=== PATIENT | female | born 1960 | race Caucasian/White ===

== ENCOUNTER 2016-08-16 23:57 | Inpatient (IN) | payer MEDICARE ==
--- NOTE | 2016-08-17 00:34 | HP ---
CIWA Score - CIWA Score Nausea/Vomitin Muscle Tremors: 5 Anxiety: 5 Agitation: 5 Paroxysmal Sweats: 3 Orientation: 0-Oriented Tacttile Disturbances: 3-Moderate Itch/Numb/Burn Auditory Disturbances: 0-None Visual Disturbances: 0-None Headache: 0-None Present CIWA-Ar Total Score: 23 Admission ROS S - [facility] Chief Complaint: C/O WITHDRAWAL SX'S. SEEKING DETOX TXMENT History of Present Illness: 56 Y.O. FEMALE WITH LONG HX OF ALCOHOLISM ADMITTED FOR DETOX TXMENT. THIS IS CLIENTS FIRST TIME HERE. REPORTS LAST INPATIENT TXMENT WAS 2 YEARS AGO. REPORTS LONGEST SOBRIETY WAS 11 YEARS. SHE WAS BROUGHT IN BY HER SPONSOR Exam Limitations: No Limitations - Ebola screening Have you traveled outside of the country in the last 21 days: No Have you had contact with anyone from an Ebola affected area: No Have you been sick,other than usual withdrawal symptoms: No Do you have a fever: No - Review of Systems Constitutional: Chills, Night Sweats EENT: reports: Other (GLASSES) Respiratory: reports: No Symptoms reported Cardiac: reports: No Symptoms Reported GI: reports: Vomiting : reports: No Symptoms Reported Musculoskeletal: reports: No Symptoms Reported Integumentary: reports: No Symptoms Reported Neuro: reports: No Symptoms reported Endocrine: reports: No Symptoms Reported Hematology: reports: No Symptoms Reported Psychiatric: reports: Anxious, Depressed Other Systems: Reviewed and Negative Patient History - Patient Medical History Hx Anemia: No Hx Asthma: No Hx Chronic Obstructive Pulmonary Disease (COPD): No Hx Cancer: No Hx Cardiac Disorders: No Hx Congestive Heart Failure: No Hx Hypertension: Yes (NO MEDS) Hx Hypercholesterolemia: No Hx Pacemaker: No HX Cerebrovascular Accident: No Hx Seizures: No Hx Dementia: No Hx Diabetes: No Hx Gastrointestinal Disorders: No Hx Liver Disease: No Hx Genitourinary Disorders: No Hx Sexually Transmitted Disorders: No Hx Renal Disease (ESRD): No Hx Thyroid Disease: No Hx Human Immunodeficiency Virus (HIV): No Hx Hepatitis C: No Hx Depression: Yes (ON MEDS EFFEXOR XL, ) Hx Suicide Attempt: No Hx Bipolar Disorder: No Hx Schizophrenia: No Other Medical History: DENIES - Patient Surgical History Past Surgical History: Yes Other Surgical History: TONSILLECTOMY Anesthesia Reaction: No - PPD History Previous Implant?: Yes Documented Results: Negative w/o proof Implanted On Prior [facility] Admission?: No PPD to be Administered?: Yes - Reproductive History Patient is a Female of Child Bearing Age (11 -55 yrs old): No - Smoking Cessation Smoking history: Current every day smoker Have you smoked in the past 12 months: Yes Aproximately how many cigarettes per day: 15 Cigars Per Day: 0 Hx Chewing Tobacco Use: No Initiated information on smoking cessation: Yes 'Breaking Loose' booklet given: 08/17/16 - Substance & Tx. History Hx Alcohol Use: Yes Hx Substance Use: Yes Substance Use Type: Alcohol Hx Substance Use Treatment: Yes (DOES NOT RECALL) - Substances Abused BEER Route: Oral Frequency: Daily Amount used: 16 CANS 12 0Z Age of first use: 13 Date of Last Use: 08/16/16 Family Disease History - Family Disease History Family History: Denies Admission Physical Exam [facility] - Physical General Appearance: Yes: Appropriately Dressed, Mild Distress, Alcohol on Breath , Intoxicated, Tremorous, Sweating, Anxious HEENTM: Yes: EOMI, Normocephalic, Normal Voice, JUAN, Pharynx Normal, Other ( DENTURES UPPER/LOWER) Respiratory: Yes: Chest Non-Tender, Lungs Clear, Normal Breath Sounds, No Respiratory Distress, No Accessory Muscle Use Neck: Yes: Within Normal Limits Breast: Yes: Breast Exam Deferred Cardiology: Yes: Regular Rhythm, S1, S2, Tachycardia Abdominal: Yes: Normal Bowel Sounds, Non Tender, Soft Genitourinary: Yes: Within Normal Limits Back: Yes: Within Normal Limits Musculoskeletal: Yes: full range of Motion, Gait Steady Extremities: Yes: Normal Capillary Refill, Normal Range of Motion, Non-Tender, Tremors Neurological: Yes: story editor II-XII NML intact, Fully Oriented, Alert, Motor Strength 5/5 Integumentary: Yes: Warm, Moist Lymphatic: Yes: Within Normal Limits - Diagnostic (1) Alcohol dependence with uncomplicated withdrawal Current Visit: Yes Status: Chronic (2) Nicotine dependence Current Visit: Yes Status: Chronic Qualifiers: Nicotine product type: cigarettes Substance use status: uncomplicated Qualified Code(s): F17.210 - Nicotine dependence, cigarettes, uncomplicated (3) HTN (hypertension) Current Visit: Yes Status: Chronic Qualifiers: Hypertension type: essential hypertension Qualified Code(s): I10 - Essential (primary) hypertension Cleared for Admission [facility] - Detox or Rehab [facility] Level of Care: Medically Managed Detox Regimen/Protocol: [facility] Breath Alcohol Content Breath Alcohol Content: 0.224 Vital Signs - Vital Signs Vital Signs Refused: No Temperature: 97.4 F Temperature Source: Oral Pulse Rate: 97 Respiratory Rate: 20 Blood Pressure: 155/87 BP Location: Left Arm Blood Pressure Position: Sitting - Height Height: 5 ft 4 in - Weight Weight: 87.997 kg Weight Measurement Method: Standing Scale Body Mass Index (BMI): 33.3 Urine Pregancy Test - Test Device Lot Number: [id number] Expiration Date: 02/19/18 - Control Horizontal Line in Upper Control Window?: Yes - Result Urine Test Results: Negative- NO Line Present Urine Drug Screen - Test Device Lot Number: [id number] Expiration Date: 03/21/18 - Control Is Test Valid: Yes - Results Drug Screen Negative: Yes
[2016-08-17 00:39] VITALS: BMI 33.3
[2016-08-17] MEDS ORDERED: P-EPHED 60MG/TRIPROLIDI 2.5MG TABLET PO PRN (00:49)
[2016-08-17] MEDS ORDERED: NICOTINE POLACRILEX 2 MG GUM BC PRN (00:49)
[2016-08-17] MEDS ORDERED: guaiFENesin/D-METHORPHAN HB 10 ML UNIT-DOSE CUPS PO PRN (00:49)
[2016-08-17] MEDS ORDERED: chlordiazePOXIDE HCL 25 MG CAPSULE PO ONE (00:49)
[2016-08-17] MEDS ORDERED: MAG HYDROX/AL HYDROX/SIMETH 30 ML UNIT-DOSE CUP PO PRN (00:49)
[2016-08-17] MEDS ORDERED: hydrOXYzine PAMOATE 50 MG CAPSULE (FP) PO PRN (00:49)
[2016-08-17] MEDS ORDERED: IBUPROFEN 400 MG TABLET (FP) PO PRN (00:49)
[2016-08-17] MEDS ORDERED: MENTHOL/PHENOL 1 EACH UD MM PRN (00:49)
[2016-08-17] MEDS ORDERED: LOPERAMIDE HCL 2 MG CAPSULE PO PRN (00:49)
[2016-08-17] MEDS ORDERED: MAGNESIUM CITRATE 300 ML BOTTLE PO PRN (00:49)
[2016-08-17] MEDS ORDERED: chlordiazePOXIDE HCL 25 MG CAPSULE PO PRN (00:49)
[2016-08-17] MEDS ORDERED: ACETAMINOPHEN 325 MG TABLET (FP) PO PRN (00:49)
[2016-08-17] MEDS ORDERED: MAGNESIUM HYDROX 2400MG/30ML ORAL SUSPENSION 30 ML CUP PO PRN (00:49)
[2016-08-17] MEDS: cloNIDine HCL 0.1 MG TABLET PO PRN ×2 (01:35→10:28)
[2016-08-17] MEDS: diphenhydrAMINE HCL 50 MG CAPSULE PO PRN ×2 (01:35→22:21)
[2016-08-17] MEDS: chlordiazePOXIDE HCL 25 MG CAPSULE PO SCH ×4 (06:16→22:20)
[2016-08-17 10:23] LABS: MCHC 33.1 g/dl (32.0-36.0); MEAN CELL VOLUME 93.6 fl (80-96); MEAN PLT VOLUME 7.7 fl (7.5-11.1); PLATELET COUNT 215 K/MM3 (134-434); RDW 15.4 % (11.6-15.6); WHITE BLOOD COUNT 7.1 K/mm3 (4.0-10.0)
[2016-08-17] MEDS: PRENATAL VITAMINS W/ FOLIC ACID TABLET (FP) PO SCH (10:29)
[2016-08-17] MEDS: NICOTINE 21 MG/24 HOURS TOPICAL PATCH TD SCH (10:29)
[2016-08-17 11:42] LABS: ALBUMIN 3.3 g/dl (3.4-5.0); ANION GAP 10 (8-16); CALCIUM 8.2 mg/dL (8.5-10.1); CO2 29 mmol/L (21-32); GLUCOSE,RANDOM 108 mg/dL (74-106)
[2016-08-17 11:46] LABS: ALK PHOS 79 U/L (45-117); BILIRUBIN,TOTAL 0.3 mg/dL (0.2-1.0); CREATININE 0.5 mg/dL (0.55-1.02); SGOT/AST 26 U/L (15-37); SGPT/ALT 24 U/L (12-78); TOT PROT 6.4 g/dl (6.4-8.2)
--- NOTE | 2016-08-17 11:56 | PN ---
S CIWA - CIWA Score Nausea/Vomitin-Mild Nausea/No Vomiting Muscle Tremors: 4-Moderate,w/Arms Extend Anxiety: 4-Mod. Anxious/Guarded Agitation: 4-Moderately Restless Paroxysmal Sweats: 3 Orientation: 0-Oriented Tacttile Disturbances: 0-None Auditory Disturbances: 0-None Visual Disturbances: 0-None Headache: 1-Very Mild CIWA-Ar Total Score: 17 [facility] Progress Note (SOAP) Subjective: headache sweats shakes interrupted sleep anxious Objective: 08/17/16 11:54 Vital Signs Temperature 98.0 F 08/17/16 11:02 Pulse Rate 96 H 08/17/16 11:02 Respiratory Rate 16 08/17/16 11:02 Blood Pressure 145/103 08/17/16 11:02 O2 Sat by Pulse Oximetry (%) Laboratory Tests 08/17/16 08/17/16 07:00 07:00 WBC 7.1 RBC 4.52 Hgb 14.0 Hct 42.3 MCV 93.6 MCHC 33.1 RDW 15.4 Plt Count 215 MPV 7.7 Sodium 142 Potassium 3.9 Chloride 103 Carbon Dioxide 29 Anion Gap 10 BUN 10 Creatinine 0.5 L Creat Clearance w eGFR > 60 Random Glucose 108 H Calcium 8.2 L Total Bilirubin 0.3 AST 26 ALT 24 Alkaline Phosphatase 79 Total Protein 6.4 Albumin 3.3 L labs pending awake/alert ambulating no acute distress Assessment: 08/17/16 11:55 withdrawal sx Plan: continue detox increase fluids labs pending
--- NOTE | 2016-08-17 13:43 | EKG ---
Test Reason : Blood Pressure : / mmHG Vent. Rate : 099 BPM Atrial Rate : 099 BPM P-R Int : 170 ms QRS Dur : 080 ms QT Int : 344 ms P-R-T Axes : 028 032 037 degrees QTc Int : 441 ms NORMAL SINUS RHYTHM NORMAL ECG NO PREVIOUS ECGS AVAILABLE Confirmed by FUENTES POLLOCK MD ([id number]) on 08/17/2016 1:43:09 PM Referred By: Confirmed By:FUENTES POLLOCK MD
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
[2016-08-17 16:55] LABS: URINE APPEARANCE SLCLOUDY; URINE BILIRUBIN NEGATIVE (NEGATIVE); URINE BLOOD NEGATIVE (NEGATIVE); URINE COLOR LTYELLOW; URINE GLUCOSE (UA) NEGATIVE (NEGATIVE); URINE KETONE NEGATIVE (NEGATIVE); URINE NITRITE NEGATIVE (NEGATIVE); URINE PROTEIN NEGATIVE (NEGATIVE); URINE UROBILINOGEN NEGATIVE E.U./dl (0.2-1.0)
[2016-08-17 17:17] LABS: URINE LEUK ESTERASE TRACE (NEGATIVE)
[2016-08-17 21:29] LABS: URINE RBC 2 /hpf (0-3); URINE WBC 13 /hpf (3-5)
[2016-08-17] MEDS ORDERED: THIAMINE HCL 100 MG TABLET (FP) PO SCH (22:00)
[2016-08-18] MEDS: chlordiazePOXIDE HCL 25 MG CAPSULE PO SCH ×2 (05:49→10:57)
[2016-08-18] MEDS: PRENATAL VITAMINS W/ FOLIC ACID TABLET (FP) PO SCH (10:57)
[2016-08-18] MEDS: NICOTINE 21 MG/24 HOURS TOPICAL PATCH TD SCH (10:57)
[2016-08-18 11:12] VITALS: BP 144/97; PULSE 79; TEMP 97.9
--- NOTE | 2016-08-18 11:46 | PN ---
S CIWA - CIWA Score Nausea/Vomitin Muscle Tremors: 3 Anxiety: 2 Agitation: 2 Paroxysmal Sweats: 1-Minimal Palms Moist Orientation: 0-Oriented Tacttile Disturbances: 1-Very Mild Itch/Numbness Auditory Disturbances: 1-Very Mild Visual Disturbances: 1-Very Mild Sensitivity Headache: 2-Mild CIWA-Ar Total Score: 16 S Progress Note (SOAP) Subjective: ALERT,IRRITABLE,ANXIOUS,INTERRUPTED SLEEP,TREMOR Objective: 08/18/16 11:45 Vital Signs Temperature 97.9 F 08/18/16 11:11 Pulse Rate 79 08/18/16 11:11 Respiratory Rate 18 08/18/16 11:11 Blood Pressure 144/97 08/18/16 11:11 O2 Sat by Pulse Oximetry (%) EKG NSR,NORMAL ECG Laboratory Last Values WBC 7.1 K/mm3 (4.0-10.0) 08/17/16 07:00 RBC 4.52 M/mm3 (3.60-5.2) 08/17/16 07:00 Hgb 14.0 GM/dL (10.7-15.3) 08/17/16 07:00 Hct 42.3 % (32.4-45.2) 08/17/16 07:00 MCV 93.6 fl (80-96) 08/17/16 07:00 MCHC 33.1 g/dl (32.0-36.0) 08/17/16 07:00 RDW 15.4 % (11.6-15.6) 08/17/16 07:00 Plt Count 215 K/MM3 (134-434) 08/17/16 07:00 MPV 7.7 fl (7.5-11.1) 08/17/16 07:00 Sodium 142 mmol/L (136-145) 08/17/16 07:00 Potassium 3.9 mmol/L (3.5-5.1) 08/17/16 07:00 Chloride 103 mmol/L (98-107) 08/17/16 07:00 Carbon Dioxide 29 mmol/L (21-32) 08/17/16 07:00 Anion Gap 10 (8-16) 08/17/16 07:00 BUN 10 mg/dL (7-18) 08/17/16 07:00 Creatinine 0.5 mg/dL (0.55-1.02) L 08/17/16 07:00 Creat Clearance w eGFR > 60 (>60) 08/17/16 07:00 Random Glucose 108 mg/dL (74-106) H 08/17/16 07:00 Calcium 8.2 mg/dL (8.5-10.1) L 08/17/16 07:00 Total Bilirubin 0.3 mg/dL (0.2-1.0) 08/17/16 07:00 AST 26 U/L (15-37) 08/17/16 07:00 ALT 24 U/L (12-78) 08/17/16 07:00 Alkaline Phosphatase 79 U/L (45-117) 08/17/16 07:00 Total Protein 6.4 g/dl (6.4-8.2) 08/17/16 07:00 Albumin 3.3 g/dl (3.4-5.0) L 08/17/16 07:00 Urine Color Ltyellow 08/17/16 10:50 Urine Appearance Slcloudy 08/17/16 10:50 Urine pH 5.0 (5.0-8.0) 08/17/16 10:50 Ur Specific [place] 1.012 (1.001-1.035) 08/17/16 10:50 Urine Protein Negative (NEGATIVE) 08/17/16 10:50 Urine Glucose (UA) Negative (NEGATIVE) 08/17/16 10:50 Urine Ketones Negative (NEGATIVE) 08/17/16 10:50 Urine Blood Negative (NEGATIVE) 08/17/16 10:50 Urine Nitrite Negative (NEGATIVE) 08/17/16 10:50 Urine Bilirubin Negative (NEGATIVE) 08/17/16 10:50 Urine Urobilinogen Negative E.U./dl (0.2-1.0) 08/17/16 10:50 Ur Leukocyte Esterase Trace (NEGATIVE) H 08/17/16 10:50 Urine RBC 2 /hpf (0-3) 08/17/16 10:50 Urine WBC 13 /hpf (3-5) 08/17/16 10:50 Ur Epithelial Cells Few /hpf (FEW) 08/17/16 10:50 RPR Titer Nonreactive (NONREACTIVE) 08/17/16 07:00 Hepatitis C Antibody <0.1 s/co ratio (0.0-0.9) 08/17/16 07:00 Assessment: 08/18/16 11:46 WITHDRAWAL SYMPTOM Plan: CONTINUE DETOX
--- NOTE | 2016-08-18 11:48 | PN ---
S Progress Note Note: PATIENT DID NOT WANT TO COMPLETE TREATMENT ,SIGNED RELEASE AMA,FOLLOW UP WITH AFTER CARE PROGRAM ARRANGEMENT AND PMD FOR MEDICAL PROBLEM
--- NOTE | 2016-08-18 12:03 | DS ---
[facility] Detox Discharge Summary Admission Date: 08/17/16 Discharge Date: 08/18/16 - History Present History: Alcohol Dependence Additional Comments: PATIENT DID NOT WANT TO COMPLETE TREATMENT,SIGNED RELEASE AMA,ADVISE JIMBO [facility]IST[facility] WITH [facility] ARRANGEMENT AND PMD FOR MEDICAL PROBLEM Pertinent Past History: HYPERTENSION DEPRESSIVE DISORDER - Physical Exam Results Vital Signs: Vital Signs Temperature 97.9 F 08/18/16 11:11 Pulse Rate 79 08/18/16 11:11 Respiratory Rate 18 08/18/16 11:11 Blood Pressure 144/97 08/18/16 11:11 O2 Sat by Pulse Oximetry (%) Pertinent Admission Physical Exam Findings: WITHDRAWAL SYMPTOM - Medication Discharge Medications: Ambulatory Orders Venlafaxine HCl ER [Effexor Xr -] 300 mg PO DAILY 08/17/16 - AMA Did Patient Leave Against Medical Advice: Yes
[2016-08-19] MEDS ORDERED: chlordiazePOXIDE 5 MG CAPSULE PO SCH (05:00)
[2016-08-20] MEDS ORDERED: chlordiazePOXIDE HCL 10 MG CAPSULE PO SCH (05:00)
== END 2016-08-18 12:16 | disposition left against medical advice (07) | DRG 770 ==
LOC: YASAS 23:57 → Y6N 08-17 00:14
PROVIDERS: ADMIT Internal Medicine Addiction Medicine; ATTEND Internal Medicine
PROC: HZ2ZZZZ Detoxification Services for Substance Abuse Treatment (ICD-10-PCS; principal; 2016-08-18)
DX: F10.230 Alcohol dependence with withdrawal, uncomplicated (principal); F17.210 Nicotine dependence, cigarettes, uncomplicated; F10.24 Alcohol dependence with alcohol-induced mood disorder; F32.9 Major depressive disorder, single episode, unspecified; I10 Essential (primary) hypertension
CPT/HCPCS: 36415; 71010-TC; 80053; 81003; 81015; 85027; 86593; 93005; 93010